=== PATIENT | male | born 1945 | race Asian ===

== ENCOUNTER 2018-05-02 11:44 | Day surgery (SDC) | payer OTHER, SELFPAY ==
--- NOTE | 2018-05-02 | PATH_ITS ---
[facility] Accession Number: [id number] . 01 Material submitted: . PROXIMAL STOMACH BIOPSY . 02 Diagnosis: Proximal Stomach, Biopsies: Gastric body mucosa with features of reactive gastropathy. No evidence of Helicobacter organism on H/E stain. Negative for intestinal metaplasia, dysplasia or malignancy. V/05/05/2018 . 02 Electronically signed: . Michael Miller MD, PhD, Pathologist NPI- [id number] . 01 Gross description: . Received in one formalin-filled container labeled with the patient's name and labeled proximal stomach, are four 0.1-0.3 cm portions of tissue, entirely submitted in one cassette. ([id number]) /FRR . 02 Pathologist provided ICD-10: R10.13 . 02 CPT . 342597 Specimen Comment: A duplicate report has been generated due to demographic updates. Performed at: [facility] [address] [place] [address], [place], [place] [id number] MD Aditya Gillette MD Phone: [phone] [facility]formed at: [facility] [address] [place], [place] [id number] MD James Hernandez MD Phone: [phone]
[2018-05-02 12:22] VITALS: BMI 23.8
[2018-05-02 12:50] VITALS: BP 128/71; PULSE 73; RESP 20; TEMP 36.2; O2SAT 100
[2018-05-02] MEDS: SODIUM CHLORIDE 0.9% 1,000 ML 21 ML IV (12:56)
--- NOTE | 2018-05-02 13:16 | PM.PREOP ---
Pre-operative Note Interval Note Pre-op Check: Yes History & Physical Reviewed by Physician and Yes Exam Performed Changes: No ASA Class (for procedural sedation): I
[2018-05-02] MEDS: TETRACAINE/BENZOCAINE/BUTAMBEN (CETACAINE) BOTTLE 1 SPRAY TOP (13:46)
[2018-05-02] MEDS: LIDOCAINE 4% SOLN 50 ML 20 ML TOP (13:47)
[2018-05-02] MEDS: fentaNYL 250 MCG/5 ML INJ IV (13:48)
[2018-05-02] MEDS: MIDAZOLAM 5 MG/5 ML VIAL IV (13:49)
--- NOTE | 2018-05-02 13:58 | PM.OP.ENDO ---
Operative Date/Time/Diagnoses Date of procedure: 05/02/18 Time of procedure: 13:58 Pre-op diagnosis: Epigastric pain worsening despite treatment Post-op diagnosis: same (Discrete areas of inflammation suggesting healing gastric ulcers. Biopsies taken) Procedure & Clinicians Study performed: EGD with cold biopsy Same procedure as scheduled: Yes Indications: Determine cause of symptoms despite treatment Surgeon: Doron Proctor Procedure Notes SCOAP/Timeout: Performed Procedure in detail: The patient had topical anesthetic applied to oropharynx. She was placed in left lateral decubitus position and underwent IV sedation directed by the surgeon consisting of fentanyl and Versed. A bite block was inserted and the scope was advanced through it into the esophagus. The esophagus was unremarkable. GE junction was noted at 40 cm from the incisors. The stomach insufflated well. There were no lesions seen in the body, antrum or at the incisura. The proximal stomach up however had some discrete areas of cobblestoning/inflammation suggesting healing ulcers. The pyloric channel was patent. The duodenum was unremarkable to the 4th part. The scope was brought back into the stomach and retroflexed. The proximal stomach was biopsied in the areas of cobblestoning. These biopsy sites spread bled rather freely, which was a little unusual. The scope was straightened and brought out through the esophagus again. The suggestion of a widely patent Schatzki ring was noted near the GE junction. The scope was removed and the patient tolerated the procedure well. Scope withdrawal time: Not applicable Sedation minutes: 10 Findings: gastritis Specimen(s): other (Cobblestoning areas the proximal stomach) Complications: none Recommendations: Continue medication(s) Follow up: weeks (4-6) Disposition: same day surgery
[2018-05-02 14:08] VITALS: BP 119/69; PULSE 67; RESP 15; TEMP 36.4; O2SAT 97
== END 2018-05-02 14:20 | disposition home or self-care (01) ==
PROVIDERS: PCP Family Medicine; Visit Provider Specialist
PROC: 0DJ08ZZ Inspection of Upper Intestinal Tract, Via Natural or Artificial Opening Endoscopic (ICD-10-PCS; CPT 43235; principal; 2018-05-02 12:45)
DX: R10.13 Epigastric pain (principal); I10 Essential (primary) hypertension
CPT/HCPCS: 43239; 99152; J2250; J3010

== ENCOUNTER → 2018-05-13 14:10 | Outpatient (CLI) | payer OTHER, SELFPAY ==
--- NOTE | 2018-05-13 14:12 | DI.US.S_ITS ---
PROCEDURE: US ABDOMEN COMPLETE INDICATIONS: EPIGASTRIC PAIN, GALLBLADDER TECHNIQUE: Real-time scanning was performed of the abdominal and retroperitoneal organs, with image documentation. COMPARISON: None. FINDINGS: Liver: Liver is normal in size and homogeneous in echotexture, moderately hyperechoic consistent with fatty infiltration. Gallbladder: The gallbladder appears normal Biliary ducts: Intrahepatic bile ducts are non-dilated. Extrahepatic bile duct caliber measures 11.0 mm. Normal is 6-7 mm or less in diameter, or 10 mm or less post-cholecystectomy. Pancreas: Visualized portions of the pancreas are sonographically normal. Spleen: Spleen is normal in size and homogeneous in echotexture. Kidneys: Kidneys are normal in size and echotexture. Right kidney measures 10.0 cm long; left kidney measures 9.4 cm long. No hydronephrosis or nephrolithiasis. No solid masses. A portion of the lower pole right kidney was obscured by bowel gas. Aorta: Visualized aorta is normal in caliber at less than 3 cm. a portion of the middle third of the aorta was obscured by bowel gas. Iliacs: Proximal common iliac arteries are normal in caliber at less than 2.5 cm. IVC: Intrahepatic inferior vena cava is patent. Miscellaneous: No free abdominal fluid. IMPRESSION: Middle third of the abdomen demonstrated significant bowel gas which obscured visualization of the lower third portion of the right kidney and the middle third portion of the aorta. Hyperechoic liver echotexture consistent with fatty infiltration. 11 mm common bile duct, in a patient without prior cholecystectomy. Etiology of this prominence is uncertain. Depending on the clinical status followup by repeat ultrasound in 6 months or near term MR cholangiography may be warranted. Please correlate with liver function tests to determine whether CT at this time, near term MR cholangiogram, or six-month followup ultrasound is warranted. Dictated by: Blu Hayward M.D. on 05/13/2018 at 15:37 Approved by: Blu Hayward M.D. on 05/13/2018 at 15:39
== END ==
PROVIDERS: PCP Family Medicine; Visit Provider Specialist
DX: R10.13 Epigastric pain (principal)
CPT/HCPCS: 76700

== ENCOUNTER → 2018-06-19 10:59 | Outpatient (CLI) | payer OTHER, SELFPAY ==
--- NOTE | 2018-06-19 11:02 | DI.MRI.S_ITS ---
PROCEDURE: MR ABDOMEN WO/W CON INDICATIONS: Dilatation of the common bile duct TECHNIQUE: Coronal HASTE, axial 2D FLASH in- and [id number]; axial breath-hold T2 FSE with fat saturation from the hepatic dome to the iliac crests. Oblique coronal thin-slice and radial thick slab HASTE through the biliary system. Dynamic axial VIBE during administration of contrast. Post-contrast coronal VIBE or 2D FLASH with fat saturation from the hepatic dome to the iliac crests. Optional diffusion weighted imaging and ADC may be performed. COMPARISON: [facility], US, US ABDOMEN COMPLETE, 05/13/2018, 14:50. FINDINGS: Image quality: Excellent. Pancreas and biliary system: The pancreatic duct is normal in caliber, no pancreatic mass lesion is found. Note is made of prominence of the common bile duct above the pancreatic head level, measuring between 11 and 12 mm in maximal dimension. This was previously identified on recent abdominal ultrasound 05/13/18. No common duct stone or evidence of distal biliary mass is present. The gallbladder appears free of calculus or inflammation. Solid organs: Liver is normal in size and enhancement. No intrahepatic biliary distention is present. Spleen is normal in size and enhancement. No adrenal nodules. Kidneys are normal in size and enhancement, without hydronephrosis. Nodes and vessels: No retroperitoneal or mesenteric adenopathy by size criteria. Aorta and inferior vena cava are normal in size. Bowel and peritoneum: Unenhanced bowel loops are normal in caliber throughout. No free fluid. Lung bases: No basal pleural effusions. Heart size is normal. Bones and soft tissues: No ventral hernias. Bone marrow is normal in overall signal. IMPRESSION: There is a mild prominence of the extrahepatic common duct, measuring up to 11-12 mm in maximal axial dimension as was previously the case during recent abdominal ultrasound. There is no suspicion for adjacent pancreatic mass or intrinsic lesion involving the distal common duct toward the ampulla. No biliary calculus is present, the gallbladder is well-visualized and appears free of inflammation or stone. Dictated by: Blu Hayward M.D. on 06/19/2018 at 12:54 Approved by: Blu Hayward M.D. on 06/19/2018 at 13:03
[2018-06-19 11:29] LABS: BUN Creatinine Ratio 17.8 (6-22); Blood Urea Nitrogen 16 mg/dL (9-20); Estimated Glomerular Filt Rate > 60.0 mL/min (>60)
== END ==
PROVIDERS: Family Provider Family Medicine; PCP Family Medicine; Visit Provider Specialist
DX: K83.8 Other specified diseases of biliary tract (principal)
CPT/HCPCS: 36415; 74183; 82565; 84520; A9579

== ENCOUNTER → 2024-06-02 12:49 | Outpatient (CLI) | payer OTHER, SELFPAY ==
[2024-06-02 13:32] LABS: Influenza A - CEPHEID Flu A NEGATIVE (NEGATIVE); Influenza B - CEPHEID Flu B NEGATIVE (NEGATIVE); Respiratory Syncytial Virus Negative (Negative)
[2024-06-02 13:34] LABS: COVID-19 CEPHEID 4-PLEX PCR Negative (Negative)
== END ==
PROVIDERS: Family Provider Family Medicine; PCP Internal Medicine; Visit Provider Physician Assistant Surgical
DX: R05.1 Acute cough (principal)
CPT/HCPCS: 0241U

== ENCOUNTER → 2024-06-02 12:59 | Outpatient (CLI) | payer OTHER, SELFPAY ==
--- NOTE | 2024-06-02 13:00 | DI.RAD.S_ITS ---
PROCEDURE: XR CHEST 2V INDICATIONS: Persistent cough TECHNIQUE: 2 views of the chest were acquired. COMPARISON: None. FINDINGS: Surgical changes and devices: None. Lungs and pleura: Lungs are clear. No pleural effusions or pneumothorax. Mediastinum: Mediastinal contours are normal. Heart size is normal. Bones and chest wall: No suspicious bony abnormalities. Soft tissues appear unremarkable. IMPRESSION: No acute pulmonary process. Dictated by: Mari Ray M.D. on 06/02/2024 at 13:34 Approved by: Mari Ray M.D. on 06/02/2024 at 13:34
== END ==
PROVIDERS: Family Provider Family Medicine; PCP Internal Medicine; Referring Provider Physician Assistant Surgical; Visit Provider Physician Assistant Surgical
DX: R05.1 Acute cough (principal)
CPT/HCPCS: 0241U; 71046

== ENCOUNTER → 2025-02-10 12:24 | Outpatient (CLI) | payer MEDICARE, SELFPAY ==
--- NOTE | 2025-02-16 17:05 | DI.NM.S_ITS ---
DATE OF SERVICE: 02/10/2025 NUCLEAR CARDIOLOGY MYOCARDIAL PERFUSION STUDY PROCEDURE: Exercise treadmill stress and rest myocardial perfusion imaging study with gating to assess ejection fraction and regional wall motion. ORDERING PROVIDER: Brad Gaona MD. INDICATIONS: The patient is a 79-year-old male with atypical chest discomfort and an abnormal ECG. CARDIAC STRESS: The patient was able to exercise for 6 minutes on a standard Rohan protocol with an additional 40 seconds at a reduced rate suggesting fair exercise capacity with an HANANE of around 0%, achieving 7.0 METS. He had a normal heart rate and blood pressure response to exercise, achieving a maximum heart rate of 130 bpm (92% of his predicted maximum). He had moderate dyspnea but no other anginal symptoms. His resting ECG shows sinus rhythm with normal ST segments. There are no significant ST-segment shifts or arrhythmias with stress. At 5 minutes 40 seconds of exercise at a heart rate of 120 bpm, 25.8 millicuries of technetium-99m Myoview was injected and he was imaged 15 minutes later using a gated SPECT acquisition protocol. He returned 6 days later and was injected with 25.5 millicuries of technetium-99m Myoview and imaged 15 minutes later, again using a gated SPECT acquisition protocol. FINDINGS: 1. Raw data: There is good myocardial tracer uptake. The lung/heart ratio is at the upper limits of normal at 0.41 but is not evident visually. The TID ratio is normal at 1.00. 2. Quantitated gated SPECT: Post-stress ejection fraction is 80% without any focal wall motion abnormality. Resting ejection fraction is 73% with a normal resting end-diastolic volume of 74 mL. 3. Myocardial perfusion imaging: Post-stress supine images show a normal myocardial perfusion pattern without any perfusion defects, supported by normal perfusion imaging in the prone position. The resting images show an identical perfusion pattern without any areas of improvement. IMPRESSION: 1. Normal myocardial perfusion study. 2. No perfusion defects to suggest myocardial ischemia or previous myocardial infarction. 3. Normal left ventricular size and systolic function without focal wall motion abnormality. 4. Fair exercise capacity without angina or ECG changes of ischemia. There were no arrhythmias. Siva Salvador - KATE/henry/LETA doc#: [id number]/job#: [id number] dd: 02/16/2025 16:41:00 dt: 02/16/2025 16:54:00 DICTATING MD/COPIES TO: Husam Ryan MD; Brad Gaona MD COPIES MNE: THANIA;
== END ==
LOC: NUCM 12:25
PROVIDERS: Family Provider Family Medicine; PCP Family Medicine; Referring Provider Internal Medicine Cardiovascular Disease; Visit Provider Internal Medicine Cardiovascular Disease
DX: I20.89 Other forms of angina pectoris (principal); I10 Essential (primary) hypertension
CPT/HCPCS: 78452; 93017; A9502